=== PATIENT | male | born 1970 | race Caucasian/White ===

== ENCOUNTER → 2018-05-12 | Outpatient (CLI) | payer OTHER ==
[~2018-05-12] MED LIST: ESZO1TAB16 PO; GADAVIST IV PRN; LISD20CA PO
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
--- NOTE | 2018-05-12 19:52 | DIAGNOSTIC IMAGING REPORT ---
R LOWER EXT JOINT WITHOUT CLINICAL HISTORY: 48 years-old Male presenting with INCREASING R LEG WEAK POST TRAUMA-NEEDS DISK. TECHNIQUE: Multisequence, multiplanar MR imaging of the right hip was performed without the use of intravenous contrast. IV contrast: None. COMPARISON: CT of the abdomen and pelvis from 03/08/2018. FINDINGS: Localizer images: Unremarkable. Bone marrow: Normal bone marrow signal intensity. No bony edema. Articular cartilage: Articular cartilage preserved. Labrum: Acetabular labrum intact. No evidence of labral tear, chondrolabral separation or paralabral cyst. Bursae: No pathologic distention of the iliopsoas or trochanteric bursae. Joint effusion: No significant hip joint effusion. Sciatic nerve: Normal appearance of the sciatic nerve. Muscle: Normal muscle bulk and muscle signal intensity. Superficial soft tissue: No subcutaneous edema. IMPRESSION: Normal MR examination of the right hip. Electronically signed by: Kimo Ferguson M.D. 05/12/2018 7:50 PM Dictated Date/Time: 05/12/2018 7:45 PM
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
== END | disposition home or self-care (01) ==
LOC: C.MRI 18:20
PROVIDERS: ATTEND Internal Medicine
DX: M48.061 Spinal stenosis, lumbar region without neurogenic claudication (principal); M51.26 Other intervertebral disc displacement, lumbar region; G54.1 Lumbosacral plexus disorders; S34.4XXA Injury of lumbosacral plexus, initial encounter; X58.XXXA Exposure to other specified factors, initial encounter